=== PATIENT | male | born 1990 | race Caucasian/White ===

== ENCOUNTER 2017-06-18 10:25 | Inpatient (IN) | payer OTHER ==
[~2017-06-18] VITALS: Ht 172.7 cm; Wt 58.1 kg
[~2017-06-18 10:25] MED LIST: FLEXERIL10 MG PO; TRAMADOL50 MG PO; XANAX1 MG PO
--- NOTE | 2017-06-18 10:56 | ED PSYCHIATRIC COMPLAINT ---
History of Present Illness General Chief Complaint: Psychiatric Related Complaint Stated Complaint: +SI/DEPRESSION Triage Note: 27 Y/O MALE PRESENTS C/O DEPRESSION AND ANXIETY, "WORSENING FOR MONTHS". PT PRESENTED INTO TRIAGE WITH MALE HOWEVER THAN ASKED HIM TO LEAVE. PT STATES TO THIS NURSE "I AM NOT COMFORTABLE TELLING YOU WHO HE IS OR ISNT". PT ADMITS TO WORSENING DEPRESSION AND FEELINGS OF SI, "I FEEL LIKE IT MIGHT BE A GOOD IDEA ..". PT TEARFUL IN TRIAGE. DOES NOT ADMIT TO SPECIFIC PLAN OF SI OR HI ONLY STATING "I HAVE HAD THOUGHTS". PT TAKEN IMMEDIATELY TO [facility] PRESENT MALE THAT ACCOMPANIED PT HAS LEFT AND WILL CALL TO CHECK IN. HPI: Pt is a 27 yo extremely tearful male with a past psychiatric hx of PTSD, anxiety (on clonazepam & medical marijuana) schizophrenia (off all antipsychotics for the past 8 months) who is BIBA for concern of SI. Pt appears to be in significant emotional distress on interaction. He denies SI and plan. Denies prior attempt. States he has thought of multiple plans in the past. When asked about any HI he states "if it is in the best interest of both sides" and would not further elaborate. Pt states he has been off his antipsychotics for the last 8 months (haldol, olanzapine) and is constantly arguing with his psychiatrists who he thinks "forces" medications on him. Pt last saw a psychiatrist last month but pt refused to restart any antipsychotics. Pt states everything he does is "backwards." He believes his food is being poisoned and cannot state when his last meal was. Pt is currently homeless and jobless. He is very bizarre in nature. For the first five mins of our interaction he had significant saliva accumulating in his oral cavity and he stated he was afraid of spitting it out and causing any change. Pt states he has regularly been hearing voices for the past several years, however, the voices do not tell him what to do or to harm himself or others. States he heard lots of voices yesterday. He denies visual hallucinations. He denies any recreational drug use besides marijuana. He is willing to speak with crisis team but states he will refuse psychiatric medications. (Edilberto Noriega) Vital Signs & Intake/Output Vital Signs & Intake/Output Vital Signs Date Time Temp Pulse Resp B/P B/P Pulse O2 O2 Flow FiO2 Mean Ox Delivery Rate 06/20 1542 96.7 54 18 116/71 99 Room Air 06/20 1127 96.5 81 18 111/59 98 Room Air 06/20 0618 88.1 71 16 107/64 97 Room Air Reconcile Medications Clonazepam 1 MG TABLET 1 TAB PO BIDP PRN ANXIETY (Reported) Haloperidol 10 MG TABLET 1 TAB PO QPM MENTAL HEALTH (Reported) Sofosbuvir/Velpatasvir (Epclusa 400 MG-100 MG Tablet) 400 MG-100 MG TABLET ANTIVIRAL (Reported) (Michelle ALMEIDA,Kirill Gallegos) General Source: patient Exam Limitations: no limitations Triage Nurses Notes Reviewed? yes (Kirill Washington DO) Allergies Coded Allergies: NO KNOWN ALLERGIES (NONE 06/21/17) (Michael ALMEIDA,Neville) Past History Travel History Traveled to [place] past 21 day No Medical History Neurological: NONE EENT: NONE Cardiovascular: NONE Respiratory: NONE Gastrointestinal: NONE Hepatic: NONE Renal: NONE Musculoskeletal: NONE Psychiatric: anxiety, ?schizophrenia, ? PTSD Endocrine: NONE Blood Disorders: NONE Cancer(s): NONE SUPERVISOR PAPER TESTING/Reproductive: NONE Surgical History Surgical History: non-contributory Psychosocial History What is your primary language Nicaraguan Tobacco Use: Never used (Edilberto Noriega) Medical History Any Pertinent Medical History? see below for history Family History Hx Contributory? No (Kirill Washington DO) Review of Systems Review of Systems Constitutional: Denies: no symptoms. EENTM: Denies: no symptoms. Respiratory: Denies: no symptoms. Cardiovascular: Denies: no symptoms. GI: Denies: no symptoms. Genitourinary: Denies: no symptoms. Neurological/Psychological: Reports: see HPI. (Edilberto Noriega) Physical Exam Physical Exam General Appearance: anxious, moderate distress, thin, tearful Head: atraumatic Eyes: Bilateral: normal appearance. Ears, Nose, Throat: normal ENT inspection Neck: normal inspection Respiratory: normal breath sounds Cardiovascular: regular rate/rhythm Neurological/Psychiatric: alert, anxious Appearance/Memory/Insight: appropriate appearance, impaired insight Behavoir/Eye Contact/Speech: cooperative Thoughts/Hallucinations: delusions, flight of ideas, paranoid, phobic Skin: intact (Edilberto Noriega) SAD PERSONS SAD PERSONS Response Value Male Sex? yes 1 Depression/Hopelessness? yes 2 Previous Attempts/Psych Care yes 1 Excessive Ethanol/Drug Use? yes 1 Rational Thinking Loss? yes 2 Single//? yes 1 Social Support? has no support 1 Total 9 SAD PERSONS Done? yes (Kirill Washington DO) Progress Hand-Off Endorsed To: Kirill Martinez MD (Edilberto Noriega) Plan of Care: Orders Procedure Date/time Status Continuous Observation Monitor 06/21 1900 Active Admit to inpatient psych 06/21 1743 Active Continuous Observation Monitor 06/21 1500 Active Continuous Observation Monitor 06/21 1100 Active Continuous Observation Monitor 06/21 0700 Active Continuous Observation Monitor 06/21 0241 Active Current Medications Sig/Aggie Start time Last Medication Dose Stop Time Status Admin Haloperidol 5 MG BID 06/20 1000 UNVr (Haldol) 06/19/2017 11:22:42 PM Patient signed out to me by Dr. Nicholson. Pending crisis inpatient bed search. 11:42 PM 06/20 PM PATIENT SIGNED OUT TO ME BY DR NICHOLSON, PENDING CRISIS BED SEARCH. (Olga Newman MD) Comments: 06/19/2017 7:10:32 AM patient signed out to me by ANDRE at shift exchange operator. patient signed out to Dr. Washington at shift exchange operator. (Michelle ALMEIDA,Kirill Gallegos) Differential Diagnosis: drug intoxication, drug overdose, drug withdrawal ( DEPRESSION) Initial ED EKG: none (Kirill Washington DO) Hand-Off Endorsed To: Olga Newman MD Endorsed Time: 2300 Pending: consult (BED SEARCH) Comments: 06/20/17: PT SIGNED OUT TO DR. NEWMAN AT 2300. (Bharat ALMEIDA,Andrew Dickson) Hand-Off Endorsed To: Neville Rodriguez MD Endorsed Time: 0700 Pending: consult (CRISIS BED SEARCH) (Olga Newman MD) Departure Departure Condition: Stable Referrals: Gavi ALMEIDA,Ezequiel Kam (PCP/Family) Departure Forms: Customer Survey General Discharge Information (Edilberto Noriega) Departure Disposition: STILL A PATIENT Clinical Impression Primary Impression: Depression Comments 06/19/17 4 PM The patient has been extremely anxious and manic. He was given Haldol and Ativan. He is pending disposition by crisis. The patient will be signed out to Dr. Nicholson at 7 PM. 06/20/17 9 AM The patient was signed out to me by Dr. Newman at 7 AM. He is pending disposition by crisis. No complaints on my evaluation this morning. (Kirill Washington DO) PA/SEISMOGRAPH COMPUTER Co-Sign Statement Statement: ED Attending supervision documentation- [X] I saw and evaluated the patient. I have also reviewed all the pertinent lab results and diagnostic results. I agree with the findings and the plan of care as documented in the PA's/SEISMOGRAPH COMPUTER's documentation. [X] I have reviewed the ED Record and agree with the PA's/SEISMOGRAPH COMPUTER's documentation. [] Additions or exceptions (if any) to the PAs/SEISMOGRAPH COMPUTER's note and plan are summarized below: [] (Bharat ALMEIDA,Andrew Dickson) Psych Admission Note Psychiatric Admission: I have seen and evaluated SOFYA PAT. I have also reviewed all the pertinent lab results and diagnostic results. SOFYA PAT will be admitted to our inpatient Psychiatric unit for treatment and care. (Michael ALMEIDA,Neville) ED Attending Observation Initial Observation Note: I have seen and personally examined SOFYA PAT on 06/18/17 at 1124. I agree with the current emergency department documentation. The disposition (admission or discharge) is uncertain at this time, he needs a period of observation for the following reason(s): The ED Nurse caring for this patient has been personally informed as to what the patient is being observed for. (Edilberto Noriega)
[2017-06-18] MEDS ORDERED: HALOPERIDOL10 M1 PO (12:08)
[2017-06-18] MEDS ORDERED: CLONAZEPAM1 M2 PO (12:08)
[2017-06-18] MEDS ORDERED: EPCLUSA 400 MG1 EACH (12:09)
[2017-06-18 13:13] LABS: ABSOLUTE BASOPHIL COUNT 0 /CUMM (0.0-0.2); ABSOLUTE EOSINOPHIL COUNT 0.1 /CUMM (0.0-0.7); ABSOLUTE GRANULOCYTE CT 7.3 /CUMM (1.4-6.5); ABSOLUTE LYMPH COUNT 2.6 /CUMM (1.2-3.4); ABSOLUTE MONOCYTE COUNT 0.9 /CUMM (0.10-0.60); BASOPHIL % 0.3 % (0.0-2.0); EOSINOPHIL % 0.7 % (0-5); GRANULOCYTE % 66.8 % (42.2-75.2); HEMATOCRIT 49.6 % (42-52); MEAN CORPUSCULAR HGB 30.7 PG (27.0-31.0); MEAN CORPUSCULAR VOLUME 92.8 FL (80.0-94.0); MEAN PLATELET VOLUME 8.5 FL (7.4-10.4); PLATELET COUNT 242 /CUMM (130-400); RBC DISTRIBUTION WIDTH 12.5 % (11.5-14.5); RED BLOOD CELL CT 5.35 /CUMM (4.70-6.10); WHITE BLOOD CELL COUNT 10.9 /CUMM (4.8-10.8)
--- NOTE | 2017-06-18 14:16 | ED PSY CRISIS COLLATERAL NOTE ---
Collateral Note Collateral Note Family/Inform/Artis Contacts: Spoke with patient's mother, Lino Spangler, . Mom is very concerned, and is supportive and has extensive information on her son, who prefers to be called Hawk. Patient had been refusing medications for an extended period of time--perhaps 2 months. While he wasetting Haldol Decanoate injection (25. g.), he was not taking the other 10 m.g. doses p.o. Patient is bright, per mother and his most recent psychiatrist, Dr Amber Castañeda of [facility] in [place], . Patient hates the effect that medication has on him, calling it dulling, and so he resists meds due to discomfort as well as his denial that he has a psychiatric illness, Dr Castañeda reported that he did tell her that if he needed to be taken to the hospital in the future that he would not be so resistant, and mnother said that he had been cooperative today. Mother states that there has been a gradual decompensation over the past 2 months, as has been the situation in the past. Patient had recently been in court ordered treatment due to his being charged with an assault about [address] treatment in lieu of any time in fdc.. Patient has been diagnosed with Psychotic Disorder NOS, and withR/O of Schizoprenia. Patient was hospitalized at [facility] in the past. Dr Castañeda had told parents that she had been contemplating a change in medication to Invega, as that might be given every month or even every 3 months, which might help the compliance issue, Patient has a history of using substances such as hallucinagins, opiods, and cannabis. Patient was most recently hospitalized in [facility] and at [facility]. Dr. Castañeda feels that hospitalization is necessary. Mother had said that he has "been in and out of many hospitals" for many years. Patient required medication to calm down when he was brought to the hospital.
--- NOTE | 2017-06-18 19:51 | ED PSYCH CRISIS CONSULTATION ---
See Addendum Crisis Consult Basic Assessment Date of Consult: 06/18/17 Responsible Person/Accompanied By: came in with a friend Insurance Authorization: Insurance #1: Insurance name: ADALBERTO PETER Phone number: Policy number: [id number] Group number: Authorization number: ED Provider: Patient's ED Provider: Edilberto Noriega Primary Care Physician: Patient's PCP: Ezequiel Gatica MD PCP's Current Psychiatrist: Dr. Castañeda Chief Complaint: Psychiatric Related Complaint Patient's Quote: "I'm having problems manuevering the right way to interact properly" Present Illness: Pt is a 27 year old male who arrived to ER for paranoia, and recent mental health decompensation. Pt reports he "has trouble with nouns, and doing what the proper behavior is". Pt reports he is not eating or sleeping , he reports that's "probably for the best", I reaffirm not sleeping and eating is for the best? he states yes I can not have any of that poison and in fact I rather not talk about food. Pt states he hasn't taken a medication in a pill form, in over 8 months. He reports his last injection was about a month ago, he responded well with ativan haldol combination given in the Er, as he was anxious and highly paranoid. 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 "Im trying to figure out what I am supposed to do, and sometimes this causes me to be immobilized". He denies current si/hi, and states he does hear voices, they are not demanding in nature rather they are familiar and often narrate ideas or "bump into my machine and are trying to help me". Pt can not recall treatment episodes, and states Dr. Castañeda and medication "has dampened my psyche". Pt lives with his family in [place]. Patient's Address: [address] [place] [address] Other Phone Number: Who Do You Live With? Family Family/Informants Interviewed: see note Allergies - Coded Allergies: NO KNOWN ALLERGIES (06/15/13) Current Medications - Scheduled Medications Haloperidol 10 MG TABLET 1 TAB PO QPM MENTAL HEALTH #30 (Reported) Entered as Reported by Shahla Wong on 06/18/17 1208 Scheduled PRN Medications Clonazepam 1 MG TABLET 1 TAB PO BIDP PRN ANXIETY #30 (Reported) Entered as Reported by Shahla Wong on 06/18/17 1208 Miscellaneous Medications Sofosbuvir/Velpatasvir (Epclusa 400 MG-100 MG Tablet) 400 MG-100 MG TABLET ANTIVIRAL (Reported) Entered as Reported by Shahla Wong on 06/18/17 1209 Laboratory Results: Laboratory Tests 06/18/17 1255: Anion Gap 18 H, Estimated GFR > 60, BUN/Creatinine Ratio 19.1, Glucose 86, Calcium 10.3 H, Total Bilirubin 1.5 H, AST 44, ALT 89 H, Alkaline Phosphatase 73, Total Protein 8.8 H, Albumin 5.5 H, Globulin 3.3, Albumin/Globulin Ratio 1.7, CBC w Diff NO MAN DIFF REQ, RBC 5.35, MCV 92.8, MCH 30.7, MCHC 33.0, RDW 12.5, MPV 8.5, Gran % 66.8, Lymphocytes % 24.0, Monocytes % 8.2, Eosinophils % 0.7, Basophils % 0.3, Absolute Granulocytes 7.3 H, Absolute Lymphocytes 2.6, Absolute Monocytes 0.9 H, Absolute Eosinophils 0.1, Absolute Basophils 0, Serum Alcohol < 10.0 (Lizbet Natarajan LCSW) Past History Past Medical History Neurological: NONE EENT: NONE Cardiovascular: NONE Respiratory: NONE Gastrointestinal: NONE Hepatic: NONE Renal: NONE Musculoskeletal: NONE Psychiatric: anxiety, ?schizophrenia, ? PTSD Endocrine: NONE Blood Disorders: NONE Cancer(s): NONE CONTACT LENS ASSISTANT/Reproductive: NONE Past Surgical History Surgical History: non-contributory Psychosocial History Strengths/Capabilities: family support, in treatment Psychiatric Treatment History Psych Treatment Psychiatric Treatment Yes Inpatient Treatment Yes Outpatient Treatment Yes Location of Treatment [facility] and Dr. Castañeda outpatient Reason for Treatment psychosis/mood d/o Dates of Treatment currently with Dr. Castañeda Response to Treatment unknown Diagnosis by History: see previous discharge summaries Substance Use/Abuse History Drug Use/Abuse Substances Used/Abused Yes Substance Used/Abused Marijuana First Use unknown Last Used yesterday How much used/taken varies How often varies For how long over 5 years Route of use inhale Substance Abuse Treatment Substance Abuse Treatment Past Substance Abuse [place] No (Lizbet Natarajan LCSW) Current Mental Status Mental Status Orientation: Confused Affect: Anxious, Inappropriate, Labile Speech: Pressured Neuro-vegetative: Appetite Decreased, Concentration Poor, Energy Increased, Sleep Disturbance Appearance Appearance- Dress/Hygiene: unkempt Behaviors Thought Process: Disorganized Thought Content: Auditory Hallucinations, Delusions, Paranoid Memory: Impaired Insight: Poor SI/HI Risk Assessment Past Suicidal Ideation/Attempts No Current Suicidal Ideation/Att No Past Homicidal Ideation/Att: No Current Homicidal Ideation/Attempts No Degree of Intent: None Gravely Disabled: Inability, Poor Judgment Risk Factors: high anxiety/distress, SA/MH hospitalized, male, limited support Lethality Ratin PTSD Checklist PTSD Done? patient declined ED Management Sitter: Yes Restraints: No (Lizbet Natarajan LCSW) DSM5/PS Stressors/Medical Prob Diagnosis' (DSM 5, Stressors, Medical): F29 Unspecifed schizophrenia spectrum and other psychotic d/o Current GAF: 20 (Lizbet Natarajan LCSW) Departure Disposition Psych Medical Clearance Date: 06/18/17 Medically Cleared at: 1929 Time Started: 1929 Time Ended: 2029 Psychiatrist Consulted: Zara Date Disposition Established: 06/18/17 Rationale for Disposition: Pt will be held over for a bed search, as he meets criteria for psychiatric admission Referrals Gavi ALMEIDA,Ezequiel Kam (PCP/Family) (Lizbet Natarajan LCSW) Addendum Addendum Crisis re-evaluated pt on the evening shift. Pt presents as unkempt and malodorous. Sx remain unchanged. He was informed that he bed search continues and h will be held overnight as there is no availability at this time. He was informed that the psychiatrist will see him tomorrow and recommendations would be made from there. He was preoccupied with going to court on wednesday regarding "bland stuff". He adds an officer told me that I may not even need to go. He was informed that a letter could be faxed to court if need be, but he declined. (Galen BERNSTEIN,Odette) Addendum Crisis Update: Met with pt who presents tearful and anxious. Pt reported multiple complaints including not being able to eat. Pt reported he is not able to eat any food but could not state the reason. Pt stated he is worried about missing his court date tomorrow. Pt stated he already left a voicemail for his assurance officer. The pt repeatedly requested to leave. The pt stated he has been calling family members but the people who answer are not really his family. The pt believes the people he is calling are against him. The pt stated he will n ot take any medication. Thought process is pressured, pt presents paranoid and delusional. Pt stated he disgrees with the plan for hospitalization. (Sobeida CURRAN,Robert Pickens)
--- NOTE | 2017-06-20 00:48 | ED PSYCHIATRIST/APRN CONSULT ---
Psychiatrist/BONDERITE OPERATOR ED Consult Assessment and Plan: 27 year old gentleman with a history of a psychotic illness, depressive sx, marijuana user w/ card per him for ptsd who was brought to the ER with chest pain. He had presented illogical, paranoid and in distress. He believed that his food was being poisoned and was very bizarre, such as afraid to spit out his saliva and paranoid too introduce his friend who was with him in the ER. This afternoon we met and he stated that he had chest pain and came in here, but overall was all over the place and off topic. He stated that he was going to be off of probation on Wednesday and had a court date that he didnt need to appear in , however wanted to, and was hoping to get released by then. I informed him again that we were hoping to admit him psychiatrically and would let the court know if he was in the hospital. He stated that he feels he is getting roped around from place to place and mentioned being homeless, then being admitted to several hospitals for chest pain and other odd statements. He stated that he feels he is prevented from doing physically I cant do what I want to do and was unable to explain this or other statements. He stated that he hears voices as a commentary, sometimes musical and sometimes from above. He denied active thoughts of wanting to harm himself however did mention having them recently and having thought about not being alive anymore. He denied any drug use apart from regular MJ use which he stated helped his anxiety. He denied any past medical problems or mental health issues; however as per previous reports he is taking meds for HCV and for psychosis. Overall he was considered a poor historian. Crisis note documenting Collateral from his mother note that he is on a haldol dec 25mg and halloo 10mg oral however has not been adhering to this, and noted a gradual decompensation over last two months. Also has had court ordered in lieu of legal charges after an assault 2 years ago. Mother noted him to have been in and out of hospital for years. MSE: young man, with fair eye contact, oddly related. His speech is rapid and tangential. He has occasional flight of ideas but no gross paranoia is elicited. He endorses hallucinations that are commentary but not command in nature. His mood is neutral and affect is full and reactive. His insight is near absent to his current sx and judgment is fair to poor. A: 27 year old gentleman with a history of a psychotic illness, depressive sx, marijuana user w/ card per him for ptsd who was brought to the ER with chest pain. He had presented illogical, paranoid and in distress. He believed that his food was being poisoned and was very bizarre, such as afraid to spit out his saliva and paranoid too introduce his friend who was with him in the ER. Today he presents as less overtly psychotic, with primarily disorganized and off topic statements rather than gross paranoia. He was anxious, agitated and required IM medication earlier today. He remains acutely decompensated, at risk of violence to self others and requires inpatient admission. His utox is + marijuana, cbc is grossly normal with small granulocyte increase; cmp notes elevated ALT and some other minor changes. He is reported to be on HCV medication but has denied any medical problems to me. Plan: IP admission to stabilize his risk factors of med non adherence w/ decompensation. Start haldol 5mg twice daily for psychosis if he is agreeable, titrate up. Crisis notes that outpatient physician was considering invega in order to try and change to trinza for 3 month dosing. Will maintain haldol while he is in the ER and acutely agitated. Physical exam and f/up on hcv and med status when admitted.
--- NOTE | 2017-06-20 15:30 | ED PSYCHIATRIST/APRN CONSULT ---
Psychiatrist/FUR POLISHER ED Consult Assessment and Plan: Mr. Spangler has been refusing his haldol, refusing prn medications, anxious and pacing. He states that he needs to leave and does not need any treatment, denying any past treatment. 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 He has accepted IM ativan and will consider IM benadryl as well but has declined antipsychotics, exclaiming that he doesn't need them. Plan: continues to be acutely psychotic, with pressured speech and paranoia. IM meds ordered, continue offering scheduled and PRN meds. Continues to need IP admission at this time.
--- NOTE | 2017-06-21 17:15 | IP CRISIS DIAG ASSESS PSYCH ---
See Addendum Diagnostic Assessment Basic Assessment Insurance Authorization: Insurance #1: Insurance name: ADALBERTO PETER Phone number: Policy number: [id number] Group number: Authorization number: Primary Care Physician: Patient's PCP: Ezequiel Gatica MD PCP's Patient's Quote: "I'm having problems manuevering the right way to interact properly" Present Illness: Pt is a 27 year old male who arrived to ER for paranoia, and recent mental health decompensation. Pt reports he "has trouble with nouns, and doing what the proper behavior is". Pt reports he is not eating or sleeping , he reports that's "probably for the best", I reaffirm not sleeping and eating is for the best? he states yes I can not have any of that poison and in fact I rather not talk about food. Pt states he hasn't taken a medication in a pill form, in over 8 months. He reports his last injection was about a month ago, he responded well with ativan haldol combination given in the Er, as he was anxious and highly paranoid. 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 "Im trying to figure out what I am supposed to do, and sometimes this causes me to be immobilized". He denies current si/hi, and states he does hear voices, they are not demanding in nature rather they are familiar and often narrate ideas or "bump into my machine and are trying to help me". Pt can not recall treatment episodes, and states Dr. Castañeda and medication "has dampened my psyche". Pt lives with his family in [place]. Patient's Address: [address] [place] [address] Other Phone Number: Who Do You Live With? Family Feel Safe Where You Live? Yes Feel Safe in Your Relationship Yes Marital Status: single Do You Have Children? No Primary Language? Algerian Language(s) Spoken At Home: Algerian Family/Informants Interviewed: see note Allergies - Coded Allergies: NO KNOWN ALLERGIES (NONE 06/21/17) Current Medications - Scheduled Medications Haloperidol 10 MG TABLET 1 TAB PO QPM MENTAL HEALTH #30 (Reported) Entered as Reported by Shahla Wong on 06/18/17 1208 Scheduled PRN Medications Clonazepam 1 MG TABLET 1 TAB PO BIDP PRN ANXIETY #30 (Reported) Entered as Reported by Shahla Wong on 06/18/17 1208 Miscellaneous Medications Sofosbuvir/Velpatasvir (Epclusa 400 MG-100 MG Tablet) 400 MG-100 MG TABLET ANTIVIRAL (Reported) Entered as Reported by Shahla Wong on 06/18/17 1209 Consequences of Psych Med Use: Pt stated that he has "bad reactions" to antipsychotic medications. He aloso stated that Zyprexa caused borderline diabetes. Toxicology Screen Completed? Yes Results: positive (Cannabis) Past History Past Medical History Medical History: CHRONIC BACK PAIN, POLYSUBSTANCE ABUSE Past Surgical History Surgical History none Abuse/Trauma History Trauma History/Current Trauma: Denies Legal History Current Legal Status: none Have you ever been arrested? Yes Number of Arrests: [address] Dates: Pt denied pending cases. 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 Psychiatric Treatment History Psych Treatment Psychiatric Treatment Yes Inpatient Treatment Yes Outpatient Treatment Yes Location of Treatment [facility] and Dr. Castañeda outpatient Reason for Treatment psychosis/mood d/o Dates of Treatment currently with Dr. Castañeda Response to Treatment unknown Diagnosis by History: see previous discharge summaries Risk Factors: high anxiety/distress, SA/MH hospitalized, substance abuse, lack of outcome concern, male Substance Use/Abuse History Drug Use/Abuse minimum 12mo Hx Substances Used/Abused Yes Substance Used/Abused Marijuana First Use unknown Last Used yesterday How much used/taken varies How often varies For how long over 5 years Route of use inhale Substance Abuse Treatment Substance Abuse Treatment Past Substance Abuse [place] No Inpatient Treatment No Outpatient Treatment No Sexual History Sexually Active No # of partners 0 Education History Highest Level of Education: some college Current Mental Status Mental Status Orientation: Confused, Person, Place, Situation Affect: Anxious, Inappropriate, Labile Speech: Hyper-verbal, Pressured Neuro-vegetative: Appetite Decreased, Concentration Poor, Energy Increased, Sleep Disturbance Appearance Appearance- Dress/Hygiene: unkempt and molodorous Behaviors Thought Process: Disorganized Thought Content: Auditory Hallucinations, Delusions, Paranoid, Somatic Memory: Impaired Insight: Poor SI/HI Risk Assessment - Minimum 6mo History- Past Suicidal Ideation/Attempts No Current Suicidal Ideation/Att No Past Homicidal Ideation/Att: No Current Homicidal Ideation/Attempts No Degree of Intent: None Gravely Disabled: Inability, Poor Judgment Risk Factors: high anxiety/distress, SA/MH hospitalized, male, limited support Lethality Ratin Needs/Init TX Plan/Goals: Stabilize on medication and decrease psychotic symptoms. AUDIT-C Questionnaire: AUDIT-C Questionnaire: Response Value ETOH use in the past year Monthly or less 1 # drinks typical/day Doesn't Drink 0 6 or > drinks per occasion Never 0 Total 1 DSM5/PS Stressors/Medical Prob Diagnosis' (DSM 5, Stressors, Medical): F29 Unspecifed schizophrenia spectrum and other psychotic d/o Current GAF: 20
[2017-06-21 20:07] VITALS: BP 103/71
[2017-06-22 07:52] VITALS: BP 144/63
--- NOTE | 2017-06-22 10:12 | History & Physical ---
General Information and HPI MD Statement: I have seen and personally examined SOFYA PAT and documented this H&P. The patient is a 27 year old M who presented with a patient stated chief complaint of "I'm having problems maneuvering the right way to interact appropriately"]. Source of Information: patient, family, old records Exam Limitations: no limitations History of Present Illness: 27-year-old white male with history of PTSD, anxiety, schizophrenia has been off his medications for 8 months was brought in by ambulance for concerns of suicidal ideations also paranoid, not sleeping or eating. Refusing all medications being admitted for evaluation and treatment. Allergies/Medications Allergies: Coded Allergies: NO KNOWN ALLERGIES (NONE 06/21/17) Home Med list Sofosbuvir/Velpatasvir (Epclusa 400 MG-100 MG Tablet) 400 MG-100 MG TABLET ANTIVIRAL (Reported) Compliance With Home Meds: POOR Past History Travel History Traveled to [place] past 21 day No Medical History Neurological: NONE EENT: NONE Cardiovascular: NONE Respiratory: NONE Gastrointestinal: NONE Hepatic: NONE Renal: NONE Musculoskeletal: NONE Psychiatric: anxiety, ?schizophrenia, ? 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 Exam & Diagnostic Data Last 24 Hrs of Vital Signs/I&O Vital Signs Date Time Temp Pulse Resp B/P B/P Pulse O2 O2 Flow FiO2 Mean Ox Delivery Rate 06/22 0752 97.3 93 144/63 06/21 2006 98.2 99 103/71 06/21 1825 98.4 62 12 115/82 100 Room Air Intake & Output 06/22 1600 06/22 0800 06/22 0000 Intake Total Output Total Balance Patient 128 lb Weight Physical Exam General Appearance Alert, Oriented X3, Cooperative, No Acute Distress Skin No Rashes, No Breakdown, No Significant Lesion HEENT PERRLA, EOMI, Mucous Membr. moist/pink Neck Supple, No JVD, No thryomegaly, +2 Carotid Pulse wo Bruit, No LAD Lymphatic Axillary nl, Cervical nl Cardiovascular Regular Rate, No Murmurs Lungs Clear to Auscultation, Normal Air Movement Abdomen Normal Bowel Sounds, Soft, No Tenderness, No Hepatospenomegaly, No Masses Neurological Exam Findings: Normal Gait, Normal Speech, Strength at 5/5 X4 Ext, Normal Tone, Sensation Intact, Cranial Nerves 3-12 NL, Reflexes 2+ Cranial Nerves II through XII: Intact Extremities No Cyanosis, No Edema, Normal Pulses Vascular Normal Pulses, Pulses Symmetrical Diagnostic Data ITS Data Unobtainable at this time Assessment/Plan As Ranked By This Provider Problem List: 1. Depression 2. Schizoaffective disorder, bipolar type Miscellaneous Miscellaneous Documentation Attending Case Discussed With: Laura Acevedo MD Primary Care Physician: Ezequiel Gatica MD Patient sees these Specialists Psychiatry Level of Patient Care: MALLORY Rangel Consults Needed: Consulting Specialty: Psychiatry Consulting Physician: Laura Acevedo MD Reason for Consult: schizophrenia, off meds
[2017-06-22 12:56] VITALS: BP 123/66
[2017-06-22 15:43] VITALS: BP 109/62
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
[2017-06-22 20:18] VITALS: BP 100/59
[2017-06-23 08:21] VITALS: BP 94/48
--- NOTE | 2017-06-23 12:02 | CPS PROVIDER INIT ASMT PSYCH ---
Psychiatric Admission Junior Qa Analyst's Note Reviewed: Yes Patient Seen and Examined: Yes Identifying Information: Pt is a 27 year old male who arrived to ER for paranoia, and recent mental health decompensation. Chief Complaint: The patient did not have any complaints of his own, he reported to the mentally retarded teacher that he was "having trouble with nouns." Reaction to Hospitalization: It seems that there were symptoms suggestive of ksenia with psychotic features History of Present Illness Onset of Illness: The patient was under the care of the Department of mental health and addiction services in [facility] he reported that he was taking monthly injections of Haldol until the court order ran out and he has been without medications for a few months. Circumstances Leading to Admission: The patient presented to the emergency department with paranoia and some thought disorder as well as what seemed to be some ksenia. He has been off medications for almost 8 months now. He reported that he stopped taking the Haldol because it was dampening his psyche and making him flat Problem(s) Justifying Need for Admission: Acute ksenia/psychosis Past Psychiatric History Past Diagnosis(es)- if any: The patient was previously at Inpatient Psychiatry in 2012 or 2013 and was diagnosed with schizophrenia spectrum at the time Past Precipitating Factors- if any: Medication nonadherence - Include inpatient and outpatient treatment Treatment History: The patient was at Inpatient Psychiatry back in 2012 oh 2013. Since then he has been with the Department of mental health and addiction services in [facility]. He reported that once the court order for medication run out or probably the conservatorship with mid Thompson ran out he stopped taking the Haldol injections about 8 months ago History of Suicide Attempts or Gestures The patient denied any history of suicide at Substance Abuse History: Patient denied abusing alcohol or substances Allergies: Coded Allergies: NO KNOWN ALLERGIES (NONE 06/21/17) Home Med List: Has not been on medications several months - Include any medical condition(s) that may - impact the patient's recovery/remission Past Medical History: Denied any physical health issues Past History Medical History Neurological: NONE EENT: NONE Cardiovascular: NONE Respiratory: NONE Gastrointestinal: NONE Hepatic: NONE Renal: NONE Musculoskeletal: NONE Psychiatric: anxiety, ?schizophrenia, ? PTSD Endocrine: NONE Blood Disorders: NONE Cancer(s): NONE SHIP'S CARPENTER/Reproductive: NONE Isolation History: Standard Surgical History Surgical History: none Psychiatric Family/Social Hx Family History Psychiatric Illness: Denied family history of psychiatric illnesses Substance Use: To his knowledge no substance abuse in the family Suicides: Denied completed suicides in the family Social History Living Situation: Living with parents in [facility] Significant Relationships (family/friends): Parents Education: Some college Vocation/Occupation: Currently unemployed Legal: He had a history of arrests but no current active charges according to him Healthly Behaviors Screening Tobacco Screening Tobacco Use from ED Docu: Never used - If tobacco counseling indicated - the following topics are required. - #1 Recognizing dangerous situations. - #2 Coping Skills. - #3 Basic information about quitting. Status of Tobacco Cessation Counseling: Not Applicable Cessation Med Status Not Applicable Alcohol Screening - ETOH screen POS if BAL >=80 or Audit-C>= M4/F3 Audit-C Score from Diag Assess: 1 Blood Alcohol Level: Lab Serum Alcohol < 10.0 MG/DL 06/18/17 1255 Alcohol Use Screening Results: Neg per Audit C &/or BAL - If ETOH counseling indicated - the following topics are required. - #1 Express concern about the patient's - drinking at unhealthy levels, include informing - of national norms for moderate drinking: - men <= 14 drinks/week, max 4 drinks/occasion - women <= 7 drinks/week, max 3 drinks/occasion - #2 Providing feedback, including linking alcohol to - negative physical effects (liver injury, hypertension) - negative emotional effects (relationship problems and - depression) - negative occupational consequences (reduced work - performance) - #3 Advising the patient to abstain from alcohol or - to drink below national norms for moderate drinking - (as listed above). Status of ETOH Use Counseling: N/A B/C NO ETOH Use Metabolic Screening - Screen if on a Neuroleptic Medication - Metabolic screening should include: - Blood Pressure, BMI, Glucose or Hgb A1c, & a - Lipid profile from within the past 365 days. Metabolic Screening Not Applicable, patient not on a neuroleptic. Exam and Plan Mental Status Examination Ambulation Status: Steady gait Appearance: Long hair Attitude towards examiner: Calm and cooperative Psychomotor activity: Normal psychomotor activity Behavior: No abnormal or bizarre behaviors Quality of speech: Talkative mild pressure Affect: Constricted affect Mood: Denied feeling depressed Suicidal Ideation: Denied thoughts of suicide Homicidal Ideation: Denied thoughts of violence or homicide Hallucinations: Denied hallucinations Paranoid/Delusional Material: Denied feeling paranoid Difficulties with thought organization: Seems to have moderate thought disorder Insight: Limited insight Judgment: Good judgment in hypothetical situations, poor judgment and real-life situations Orientation: Alert and oriented to time place and person Cognition: No significant cognitive deficits he reported multiple concussions Memory Function: He reported difficulties with his memory about no deficits noted during the interview Estimate of intellectual functioning: Average Assets/Strengths Patient Identified Assets/Strengths: Intelligent Impression/Plan Impression and Plan: 27-year-old single white male with history of schizophrenia or his gait or schizoaffective disorder bipolar type presented in what seems to be manic/ psychotic state - Include all active medical diagnosis that require tx DSM 5 Diagnosis(es): Schizoaffective affective disorder, bipolar type - Initial Tx Plan for Active Psych & Medical Conditions Treatment Plan: Inpatient psychiatric care Safety checks every 15 minutes Group therapy and milieu therapy Nursing assessments vital signs and education PLASTIC EYE TECHNICIAN to obtain collateral information due biopsychosocial evaluation and set up aftercare plans Psychiatrist to evaluate patient's mental status daily and monitor medications - Factors that would help patient function - in a less restrictive setting. Factors: Adherence to medications
--- NOTE | 2017-06-23 12:11 | CP SOUTH PROGRESS NOTE PSYCH ---
See Addendum Psych (Inpt) Progress Note Progress Note Pt is a 27 year old male who arrived to ER for paranoia, and recent mental health decompensation. The patient did not have any complaints of his own, he reported to the physiotherapy assistant that he was "having trouble with nouns." It seems that there were symptoms suggestive of ksenia with psychotic features, The patient was under the care of the Department of mental health and addiction services in [facility] he reported that he was taking monthly injections of Haldol until the court order ran out and he has been without medications for a few months. The patient presented to the emergency department with paranoia and some thought disorder as well as what seemed to be some ksenia. He has been off medications for almost 8 months now. He reported that he stopped taking the Haldol because it was dampening his psyche and making him flat, The patient was previously at Inpatient Psychiatry in November 2012 and was diagnosed with schizophrenia spectrum at the time Since then he has been with the Department of mental health and addiction services in [facility]. He reported that once the court order for medication run out or probably the conservatorship with mktg ran out he stopped taking the Haldol injections about 8 months ago Mental Status Examination Steady gait;; Long hair; Calm and cooperative Normal psychomotor activity No abnormal or bizarre behaviors Talkative mild pressure Constricted affect, Denied feeling depressed, Denied thoughts of suicide; Denied thoughts of violence or homicide;; Denied hallucinations;; Denied feeling paranoid, global excessively abstract content, no specific delusions Difficulties with thought organization: Seems to have moderate thought disorder Limited insight Good judgment in hypothetical situations, poor judgment and real-life situations Alert and oriented to time place and person No significant cognitive deficits he reported multiple concussions He reported difficulties with his memory about no deficits noted during the interview Impression and Plan: 27-year-old single white male with history of schizophrenia or his gait or schizoaffective disorder bipolar type presented in what seems to be manic/ psychotic state DSM 5 Diagnosis(es): Schizoaffective affective disorder, bipolar type Treatment Plan: Inpatient psychiatric care Safety checks every 15 minutes Group therapy and milieu therapy Nursing assessments vital signs and education RETAIL GENERAL MANAGER to obtain collateral information due biopsychosocial evaluation and set up aftercare plans Psychiatrist to evaluate patient's mental status daily and monitor medications
[2017-06-23 12:23] VITALS: BP 117/60
--- NOTE | 2017-06-23 13:54 | SOCIAL WORKER PROG NOTE PSYCH ---
Social Work Progress Note Progress Note Hawk has been up participating in groups. He said he had a good conversation with the doctor today. He said he is agreeable to going on a medication that he used to be on to organize his thoughts and help avoid rehospitalization. When asked if he would remain on this medication? He stated "for now." He really has ideas about doing things holistically. He mentioned going to [facility] as an aftercare planning, stating he discussed this with the doctor and thought it sounded good. He feels it has been beneficial to come into the hospital. He feels like things are more "managable" for him. I asked how his appetite has been? He reported that he feels like he is being forced to eat some of the food here and that his palette/ taste only likes certain food sometimes. He shared that he did eat breakfast and ate a " animal burger" for lunch. He didn't feel that great after eating that. I asked if he was more of a vegetarian? He said no. He just seems to have some particular ideas about food and what he will eat. He is interested in gaining more muscle mass.
[2017-06-23 16:02] VITALS: BP 99/60
[2017-06-23 19:51] VITALS: BP 135/66
[2017-06-24 08:15] VITALS: BP 110/69
[2017-06-24 11:48] VITALS: BP 114/67
--- NOTE | 2017-06-24 12:28 | CP SOUTH PROGRESS NOTE PSYCH ---
Psych (Inpt) Progress Note Progress Note Phone conference with patient's father at his request (patient's request) father did not voice concerns about patient's potential for violence against him or his ) patient's mother), he further added that Hawk has not been talking or mentioning or writing about suicide and he believes that Hawk does not have suicide on his mind. The father reported that there are guns in the house but they are under lock and beaver and see if is with a combination lock and he only knows the combination Mental Status Examination: The patient was excessively abstract, and his thought process was somewhat difficult to follow, he also have some idiosyncratic way of using language The patient had body order, his long straight hair seemed greasy/unwashed Steady gait, the patient was calm and cooperative, he showed normal psychomotor activity There were no abnormal or bizarre behaviors He was talkative with mild pressure He showed constricted affect, he denied feeling depressed, he denied thoughts of suicide; he denied thoughts of violence or homicide; he denied hallucinations; he denied feeling paranoid, global excessively abstract content, no specific delusions, moderate thought disorder, limited insight, poor judgment, the patient was alert and oriented to time place and person, there were no significant cognitive deficits, he reported multiple concussions, reported difficulties with his memory about no deficits noted during the interview Assessment: Hawk Spangler is a 27-year-old single white male with history of schizophrenia (or schizoaffective disorder, bipolar type) who presented to ER for paranoia, and recent mental health decompensation. The patient reported to the ski maker that he was "having trouble with nouns." It seems that there were symptoms suggestive of ksenia with psychotic features, he was under the care of the Department of mental health and addiction services in [facility] he reported that he was taking monthly injections of Haldol until the court order ran out and he has been without medications for a few months. The patient presented to the emergency department with paranoia and some thought disorder as well as what seemed to be some ksenia. He has been off medications for almost 8 months now. He reported that he stopped taking the Haldol because it was dampening his psyche and making him flat, previously at Inpatient Psychiatry in November 2012 and was diagnosed with schizophrenia spectrum at the time Diagnosis(es): Schizoaffective affective disorder, bipolar type Treatment Plan: Increase Haldol to 5 mg at bedtime Patient slated for discharge on Wednesday, June 28, 2017 Continue safety checks every 15 minutes Group therapy and milieu therapy Nursing assessments vital signs and education INTERLIBRARY LOAN SERVICES LIBRARIAN to obtain collateral information due biopsychosocial evaluation and set up aftercare plans
--- NOTE | 2017-06-24 13:52 | SOCIAL WORKER PROG NOTE PSYCH ---
Social Work Progress Note Progress Note SOFYA PAT [id number] 1990 SOFYA PAT [id number] Pended Authorization # Client Authorization # Type of Request [id number] CONCURRENT Date of Admission/ Start of Services Requested From Submission Date 06/21/2017 06/24/2017 06/24/2017
--- NOTE | 2017-06-24 15:30 | SOCIAL WORKER PROG NOTE PSYCH ---
Social Work Progress Note Progress Note Loan Representative met with Hawk today in his room. He reported to be feeling well, albeit antsy to "get out of here". He stated that he had had a productive phone conversation with Dr. Meza and his parents. He talked with show card writer at length about the struggles he has had in trying to pursue the "right path". He expounded further stating that in his twenties he had been "leeched off of" by too many people and that he was determined to seek out relationships that were an equal "give and take". 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 He stated that he felt that he had been a leader to other people prior to his head injuries, but that after the injuries, he struggled to have the same cognitive functioning and could "barely care for himself". Hawk stated that after processing and incorporating this new reality into his worldview, that he now feels ready to live a life of moderation and to pursue a career/purpose in which he can give back to others. He stated that he would like to possibly be invovled with at-risk youth as a mentor. Loan Representative and he also spoke about discharge plans. Hawk stated that he feels that he benefits more from a group setting and is open to creating a "supportive network" so that he does not end up back in the hospital. Loan Representative asked Hawk if he would sign a release stating that it is okay for Sadie Sosa to speak with his parents. Hawk stated that he is okay with having a family meeting or phone conversation but that he does not want Sadie speaking with them privately without him present. As such he did not sign the release but stated that he would give verbal consent for her to speak with them in his presence. Hawk stated that he would like to pursue [facility] IOP but that he would need to have some transportation arranged as he does not want to fully rely on his parents for transportation.
[2017-06-24 15:55] VITALS: BP 106/68
[2017-06-24 19:54] VITALS: BP 125/70
--- NOTE | 2017-06-25 10:37 | SOCIAL WORKER PROG NOTE PSYCH ---
Social Work Progress Note Progress Note Called [facility] to schedule an intake. He can be seen on 07/07 at 8:15am by Erin Keating LCSW. Jorje Doll scheduled for 07/09 at 11am with April Woods APRN. Hawk seemed to be a little irritable this morning. He apparently had just been waking up around 11am and was heading to group, when I approached him to meet. He made complaints about the Haldol causing him to feel groggy and dull. He stated he was afraid it was going to cause him to feel that way and that's why he didn't really want to take it. It stated a couple of times that he feels forced into taking it and that his parents will probably be making that a condition of his living there. He stated he will move out sooner than later and would be looking to get his own place when he gets his disablility check. He felt a little disrespected and disheartened by the conversation that took place between the doctor and his Father yesterday. Up until that point he said he felt like he was getting along well with Dr. Meza. Now he is feeling like no one is listening to him. He doesn't feel that the medication changes his thought pattens and he feels it is causing a dampening effect. I told him that no one is forcing him to take medication and it really is his choice. I asked if he had considered other medication? He said they all have side effects and he isn't sure he really needs it. He stated he feels most of his issues are related to head trauma and not mental illness. I told him that I did schedule appts. for him at [facility]. He was pleased with that and stated he would be compliant with it. Talked about discharge for Wednesday.
[2017-06-25 12:25] VITALS: BP 118/56
--- NOTE | 2017-06-25 14:47 | CP SOUTH PROGRESS NOTE PSYCH ---
Psych (Inpt) Progress Note Progress Note Vital Signs Date Time Temp Pulse B/P B/P Pulse O2 FiO2 06/25 1225 71 118/56 06/24 195 98.0 66 125/70 Mental Status Examination: The patient continues to be excessively abstract/specking in generalities his thought process continues to be difficult to follow/idiosyncratic way of using language The patient continues to have body order, his long straight hair seemed greasy/ unwashed He was calm and cooperative, he showed normal psychomotor activity There were no abnormal or bizarre behaviors, He was talkative with circumstantiality and mild pressure He showed constricted affect, he denied feeling depressed, he denied thoughts of suicide; he denied thoughts of violence or homicide; he denied hallucinations; denied feeling paranoid, no specific delusions, moderate thought disorder, limited insight, alert and oriented to time place and person, there were no significant cognitive deficits, he reported multiple concussions, reported difficulties with his memory but no deficits noted during the interview Assessment: Hawk Spangler is a 27-year-old single white male who was admitted to the inpatient psychiatric unit on 06/21/2017 with history of schizophrenia (or schizoaffective disorder, bipolar type) who presented to ER for paranoia, and recent mental health decompensation. The patient reported to the operation specialist that he was "having trouble with nouns." It seems that there were symptoms suggestive of ksenia with psychotic features, he was under the care of the Department of mental health and addiction services in [facility] he reported that he was taking monthly injections of Haldol until the court order ran out and he has been without medications for a few months. The patient presented to the emergency department with paranoia and some thought disorder as well as what seemed to be some ksenia. He has been off medications for almost 8 months now. He reported that he stopped taking the Haldol because it was dampening his psyche and making him flat, previously at [facility] inpatient psych. in November 2012 and was diagnosed with schizophrenia spectrum at the time Diagnosis(es): Schizoaffective disorder, bipolar type Treatment Plan: Continue Haldol 5 mg at bedtime Patient slated for discharge on Wednesday, June 28, 2017 Continue safety checks every 15 minutes Group therapy and milieu therapy Nursing assessments vital signs and education WOOD FORM BUILDER to obtain collateral information due biopsychosocial evaluation and set up aftercare plans
[2017-06-25 15:32] VITALS: BP 125/65
[2017-06-26 12:12] VITALS: BP 102/53
[2017-06-26 16:11] VITALS: BP 102/70
--- NOTE | 2017-06-26 17:42 | CP SOUTH PROGRESS NOTE PSYCH ---
Psych (Inpt) Progress Note Progress Note The patient was seen during continuing care. We discussed about the patient with the unit staff and interviewed him 1:1 We reviewed the inpatient progress notes to date. The patient is a very thin, average height male who looks unkempt, with long, dirty, greasy looking dark hair,dirty clothes and distinct body odor. His demeanor is bizarre,when he talks, saliva, like a white foam, accumulates at the corners of his mouth and he excuses himself a couple of times to go and "dispose properly of this phlegm". He reports that, because of the medication, his mouth is very dry. Also reports that because he has not been smoking his lungs "are getting rid of a lot of stuff" and he does not consider "physiological" to swallow. He denies suicidal/homicidal ideation, auditory/visual hallucinations, he denies side effects from the medications. He has been compliant with his medication. He keeps to himself but interacts when necessary in an appropriate way with staff members and peers He has fair insight and judgment and says he is motivated for treatment. The option to follow up with IOP after discharge does not seem very appealing to him he says he would be doing very well with an individual therapist and that the groups do not interest him. The patient understands the risks/benefits/side effects of the medication and agrees to continue taking them as noted below. We will continue present medication regimen, observation, symptom monitoring. The patient will be followed up daily by the unit psychiatrist.
[2017-06-26 19:45] VITALS: BP 132/72
[2017-06-27 08:28] VITALS: BP 98/58
--- NOTE | 2017-06-27 19:48 | CP SOUTH PROGRESS NOTE PSYCH ---
Psych (Inpt) Progress Note Progress Note Seen during continuum of care. Discussed with the unit staff and seen 1:1. Still dishevelled,not showering, did not change his clothes since admission. Continues to have idiosyncratic speech, disorganized, "I have the scope and range of what is out there" "I think it has been enough synchronicity to make good eye contact and dispense love and positivity". Feels that he still needs to work on himself "regaining all the pieces and designating proprely in good order and proper". Denies S/HI, A/VH. Sleeps and eats well. Reports being groggy mostly in the morning and the "antipsychotic dulls the creativity but in a preventative I think it is good, you know, so I will not become overly excited and agitated, feeling like doing something but I have limitations physically". A/P Schizophrenia-still disorganized but calmer and amenable to treatment. We will continue present management-medication management, observation and symptom monitoring, daily meetings with a psychiatric provider, discharge planning-the patient expresses wish to maintain affiliated with [facility] and attend group therapy.
[2017-06-27 19:53] VITALS: BP 114/83
--- NOTE | 2017-06-28 07:39 | CP SOUTH PROGRESS NOTE PSYCH ---
Psych (Inpt) Progress Note Progress Note I reviewed Dr. Acevedo's notes for Sat. and Sun. Mental Status Examination: The patient was alert, and oriented to time, place, and person. He was still dishevelled, not showering, did not change his clothes since admission. Continues to have idiosyncratic speech, thought disordered, excessively global and abstract in his statements. Dr. Acevedo gave the following examples from the weekend: "I think it has been enough synchronicity to make good eye contact and dispense love and positivity". And "regaining all the pieces and designating proprely in good order and proper ". The patient denied feeling paranoid. He denied hallucinations. The patient denied feeling hopeless or worthless and denied wishing or thinking of suicide. He denied having violent thoughts or thoughts of homicide. He reported that he sleeps and eats well. He was asked if he would be willing to do blood work to test metabolic profile and he declined saying "I do not feel like doing any blood tests today." A/P Schizoaffective disorder, bipolar type. Continues to be thought disorder but calm and amenable to treatment. Plan: Discharge home with outpatient follow-up with [facility]'s outpatient psychiatric services. Patient did decline to do metabolic panel but he reported that he would think about doing it as an outpatient
[2017-06-28] MEDS ORDERED: NICOTINE PATCH1 EAC3 TOP (08:32)
[2017-06-28] MEDS ORDERED: HALOPERIDOL5 MG PO (08:32)
[2017-06-28] MEDS ORDERED: ATIVAN0.5 M1 PO (08:32)
--- NOTE | 2017-06-28 08:35 | Patient Discharge Instructions ---
Psych Discharge Inst General Discharge Information Reason for Admission: Pt is a 27 year old male who arrived to ER for paranoia, and recent mental health decompensation (thought disorder) Psy Discharge Primary Diag+ schizoaffective Disorder Psy Discharge Secondary Diag+ Cannabis Use Disorder Summary Tests/Major Procedures Lab Urine Cannabis Screen > 80.00 NG/ML H 06/18/17 1945 Studies Pending at DC: None Patient Instructions Contact Information Your Psychiatrist on [facility] was Zurdo Meza MD * If you are experiencing an emergency related to this hospitalization, please call [phone] to contact the treating psychiatrist or the psychiatrist-on- call. * To Request a copy of your medical records, please contact the Medical Records Department at [phone]. * To request results of studies pending at the time of discharge, please call [phone]. * Continue your Medications until directed to stop by your Healthcare provider. General Medication Information Please continue to take your new medications and your continued home medications , unless otherwise indicated on your discharge medication list, or unless directed by your MD or CHEMICAL MACHINE TENDER to stop them. Special Instructions Diet Regular Activity Normal Other Inst/Recommendations Re-Consider doing blood tests as outpatient - Tobacco Use Treatment Offered Post DC Medications Offered: Script Given-See Med List Post DC Tobacco Treatment Plan: [facility] Pgm - EtOH/Drug Use D/O Treatment Offered Post DC Medications Offered: Med Not Indicated for D/O Post DC EtOH/SubAbuse TX Plan: Refused Post DC Tx Pgm Metabolic Screening Patient on a neuroleptic(s) . Enter below results for Hemoglobin A1C, and lipid panel if obtained during the last 365 days. BMI: 19.400 Blood Pressure: 114/83 Laboratory Results From [facility] (If applicable): Patient refused doing the metabolic profile Advance Directives Does the Patient have Medical Advance Directives No/Per pt req info given Does Pt have Psychiatric Advance Directives? No/Refused further info Does Patient have a Designated Surrogate Decision Maker: Yes Information About Psychiatric Advance Directives Provided? Yes Discharge Plan Post Hospital Treatment Plan: [facility]'s [facility]PS
--- NOTE | 2017-06-28 08:51 | DISCHARGE SUMMARY REPORT-PSYCH ---
Visit Information Visit Dates/Diagnosis' Admission Date: 06/21/17 Discharge Date: 06/28/17 Reason for Admission: Pt is a 27 year old male who arrived to ER for paranoia, and recent mental health decompensation (thought disorder) Psy Discharge Primary Diag: schizoaffective Disorder Psy Discharge Secondary Diag: Cannabis Use Disorder Hospital Course Significant Lab Findings: Lab Urine Cannabis Screen > 80.00 NG/ML H 06/18/17 1945 Course Complications: Patient did not have any complications while he was on the inpatient psychiatric unit. Consultations: The patient had a history and physical examination performed by the turbo operator/ hospitalist while he was in the inpatient psychiatric unit. Please refer to the H&P section in the patient's electronic record for details. Allergies: Coded Allergies: NO KNOWN ALLERGIES (NONE 06/21/17) Hospital Course/TX Response: 06/22/2017: Impression and Plan: 27-year-old single white male with history of schizophrenia or his gait or schizoaffective disorder bipolar type presented in what seems to be manic/psychotic state. DSM 5 Diagnosis(es): Schizoaffective affective disorder, bipolar type Treatment Plan: Inpatient psychiatric care, Safety checks every 15 minutes Group therapy and milieu therapy, Nursing assessments vital signs and education TESTING COORDINATOR to obtain collateral information due biopsychosocial evaluation and set up aftercare plans Psychiatrist to evaluate patient's mental status daily and monitor medications 06/23/2017: Hawk refused haldol yesterday, I discussed options with him today and we agreed to: Reduce Haldol to 2 mg at bedtime Reduce Ativan to 1.5 mg at bedtime 06/24/2017: Treatment Plan: Increase Haldol to 5 mg at bedtime Patient slated for discharge on Wednesday, June 28, 2017 06/25/2017: No change in treatment plan 06/26/2017: Dr. Acevedo's observations: "very thin, average height male who looks unkempt, with long, dirty, greasy looking dark hair,dirty clothes and distinct body odor. His demeanor is bizarre,when he talks, saliva, like a white foam, accumulates at the corners of his mouth and he excuses himself a couple of times to go and "dispose properly of this phlegm". He reports that, because of the medication, his mouth is very dry. Also reports that because he has not been smoking his lungs "are getting rid of a lot of stuff" and he does not consider "physiological" to swallow. He denies suicidal/ homicidal ideation, auditory/visual hallucinations, he denies side effects from the medications. He has been compliant with his medication. He keeps to himself but interacts when necessary in an appropriate way with staff members and peers. He has fair insight and judgment and says he is motivated for treatment. The option to follow up with IOP after discharge does not seem very appealing to him he says he would be doing very well with an individual therapist and that the groups do not interest him." 06/27/2017: We will continue present management-medication management, observation and symptom monitoring, daily meetings with a psychiatric provider, discharge planning-the patient expresses wish to maintain affiliated with [facility] and attend group therapy. 06/28/2017: I reviewed Dr. Acevedo's notes for Sat. and Sun. Mental Status Examination: The patient was alert, and oriented to time, place, and person. He was still dishevelled, not showering, did not change his clothes since admission. Continues to have idiosyncratic speech, thought disordered, excessively global and abstract in his statements. Dr. Acevedo gave the following examples from the weekend: "I think it has been enough synchronicity to make good eye contact and dispense love and positivity" "regaining all the pieces and designating proprely in good order and proper." The patient denied feeling paranoid. He denied hallucinations. The patient denied feeling hopeless or worthless and denied wishing or thinking of suicide. He denied having violent thoughts or thoughts of homicide. He reported that he sleeps and eats well. He was asked if he would be willing to do blood work to test metabolic profile and he declined saying "I do not feel like doing any blood tests today." A/P Schizoaffective disorder, bipolar type. Continues to be thought disorder but calm and amenable to treatment. Plan: Discharge home with outpatient follow-up with a [facility]'s outpatient psychiatric services. Patient did decline to do metabolic panel but he reported that he would think about doing it as an outpatient Discharge HBIPS - Tobacco Use Treatment Offered Post DC Medications Offered: Not Applicable Post DC Tobacco Treatment Plan: Not Applicable - EtOH/Drug Use D/O Treatment Offered Post DC Medications Offered: NA-No EtOH/Drug Use D/O Post DC EtOH/SubAbuse TX Plan: NA-No EtOH/Drug Use D/O Metabolic Screening - Screen if on a Neuroleptic Medication - Metabolic screening should include: - Blood Pressure, BMI, Glucose or Hgb A1c, & a - Lipid profile from within the past 365 days. Metabolic Screening Patient on a neuroleptic(s) . Enter below results for Hemoglobin A1C, and lipid panel if obtained during the last 365 days. BMI: 19.400 Blood Pressure: 114/83 Laboratory Results From [facility] E[facility] (If applicable): Pt. refused to have blood drawn for metabolic panel, he said he would it outpatient Discharge Instructions General Discharge Information Multiple Neuroleptics: ([X]) Not Applicable Discharge Diet Regular Discharge Activity Normal DC Disposition: Home Referrals Ordered Referrals Provider Referral 07/07/17 For Groups: Outpatient Psychiatry [facility] Intake 07/07/17 8:15am with Erin Keating TESTING COORDINATOR [address] [place] [address] Bring insurance card and ID. Provider Referral 07/09/17 For Groups: Outpatient Psychiatry [facility] appt. with April Peggy HIDE BUFFER 11am [address] [place] [address] Prescriptions Stop taking the following medications: Clonazepam (Clonazepam) 1 MG TABLET ORAL 2 x Daily as needed as needed for ANXIETY Qty = 30 Haloperidol (Haloperidol) 10 MG TABLET ORAL Every night Qty = 30 Continue taking these medications: Sofosbuvir/Velpatasvir (Epclusa 400 MG-100 MG Tablet) 400 MG-100 MG TABLET Qty = 14 Comments: NOT GIVEN DURING THIS ADMISSION Start taking the following new medications: Nicotine (Nicotine Patch) 21 MG/24 HOUR PATCH.TD24 21 Milligram On the skin DAILY Qty = 14 No Refills Comments: Last Taken:06/27/17 Time:10am Haloperidol (Haloperidol) 5 MG TABLET 5 Milligram ORAL 2000 Qty = 14 No Refills Comments: Last Taken:06/28/17 Time:8pm Lorazepam (Ativan) 0.5 MG TABLET 1 Tablet ORAL AT BEDTIME Qty = 14 No Refills Comments: Last Taken:06/27/17 Time:8pm Other Inst/Recommendations Re-Consider doing blood tests as outpatient Studies Pending at Discharge None Copies To: OPS
--- NOTE | 2017-06-28 11:11 | SOCIAL WORKER PROG NOTE PSYCH ---
Social Work Progress Note Progress Note Hawk was filling out d/c paperwork in his room. Reported that he was feeling ok and ready for d/c. Dad was planning to pick him up at 11am. Seemed goal oriented. Spoke positively about trying to overcome past legal hx, find employment, and get into something that helps him feel like he is giving back. Continues to talk about trying to find alternative housing away from his parents. Asked about his anxiety level? He reported diminished anxiety and said he has been trying not to take any benzo's and will only take them as needed. Asked how he is feeling on the Haldol? He said he feels groggy, but "will see how it goes." Reviewed his aftercare appts. at OPS.
--- NOTE | 2017-06-28 13:42 | SOCIAL WORKER PROG NOTE PSYCH ---
Social Work Progress Note Faxed Referral(s) Referred To: [facility] Transition of Care Documents sent: Health Summary Faxed to: [facility] Fax #: [phone] Faxed by: Sadie Sosa Date faxed: 06/28/17 Time Faxed: [phone]
== END 2017-06-28 11:06 | DRG 750 ==
LOC: ERH 10:25 → CP SOUTH 06-21 17:43 → ERHI 06-21 17:43 → ENTRNSPT 06-21 19:42 → EDTRNSPT 06-21 19:48 → EDTRNSPTSTS 06-21 19:48 → CP SOUTH 06-21 19:52 → CMPTRNSPT 06-21 19:57 → ENRESERV 06-21 23:59 → CP SOUTH 06-22 10:31
PROVIDERS: Physician Assistant Medical
DX: F25.9 Schizoaffective disorder, unspecified (principal); F12.90 Cannabis use, unspecified, uncomplicated
CPT/HCPCS: 80307; 96372; G0463; G0480; J1200; J1630